=== PATIENT | female | born 1935 | race Caucasian/White ===

== ENCOUNTER 2018-04-15 17:25 | Observation (INO) ==
[2018-04-15] MEDS ORDERED: ZOFRAN IV ONE (17:53)
[2018-04-15] MEDS ORDERED: NS 1,000 ML IV ONE (17:58)
--- NOTE | 2018-04-15 18:04 | PROVIDER DOCUMENTATION ---
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) Allergies/Adverse Reactions: Patient Allergies Allergy/AdvReac Type Severity Reaction Status Date / Time codeine Allergy Unknown Unknown Verified 04/15/18 17:37 Sulfa (Sulfonamide Allergy Unknown Unknown Verified 04/15/18 17:37 Antibiotics) Home Medications: Home Medication List Medication Instructions Recorded Confirmed Last Taken Type Ascorbic Acid [Vitamin C] 500 mg PO DAILY 04/15/18 04/15/18 04/14/18 06:00 History Divalproex [Depakote Sprinkle] 375 mg PO BID 04/15/18 04/15/18 04/13/18 09:00 History Duloxetine [Cymbalta] 30 mg PO QHS 04/15/18 04/15/18 04/13/18 21:00 History Ferrous Sulfate 220 mg PO DAILY 04/15/18 04/15/18 04/14/18 06:00 History Guaifenesin 30 ml PO BID PRN 04/15/18 04/15/18 Unknown History Ranitidine HCl [Zantac] 150 mg PO DAILY 04/15/18 04/15/18 04/13/18 09:00 History - History of Present Illness-ABD Nature of Presenting Problems: 82yof present to ER via EMS with c/o n/v several times onset this afternoon. Caregiver poor historian, pt has hx of dementia. Pt c/o abd pain. Denies fever. Coffee ground emesis noted in basin in room. Abdominal Pain Onset Location: reports: generalized abdomen Pain Radiation: reports: no radiation Quality of Pain: reports: aching Onset/Duration: reports: this afternoon Timing: reports: still present Associated Symptoms: reports: nausea, vomiting. denies: fever/chills, genitourinary problems Last BM: unsure Rectal Pain: reports: none Emesis Description: reports: coffee grounds Bruising or Bleeding Gums?: No Review of Systems - Adult - REVIEW OF SYSTEMS - ADULT Constitutional: reports: no symptoms reported. denies: chills, fever Eyes: reports: no symptoms reported Ears, Nose, Mouth & Throat: reports: no symptoms reported Cardiovascular: reports: no symptoms reported. denies: chest pain Respiratory: reports: no symptoms reported. denies: shortness of breath Gastrointestinal: reports: see HPI, abdominal pain, nausea, vomiting. denies: rectal bleeding Genitourinary: reports: no symptoms reported. denies: dysuria, flank pain, frequent UTI's, hematuria Musculoskeletal: reports: no symptoms reported Integumentary: reports: no symptoms reported Neurological: reports: no symptoms reported Psychiatric: reports: no symptoms reported Endocrine: reports: no symptoms reported Hematologic/Lymphatic: reports: no symptoms reported Allergic/Immunologic: reports: no symptoms reported All Other Systems: Reviewed and Negative Past History - Adult - PAST MEDICAL HISTORY-ADULT Review of Records: reports: Old Records Reviewed, Nursing Assessment Review, Medications Reviewed Physical Exam-General - PHYSICAL EXAM-ADULT Initial Vital Signs Reviewed: Yes - CONSTITUTIONAL General Appearance: alert, no apparent distress - EYES Eyes: pink conjunctivae - HEAD, EARS, NOSE, MOUTH & THROAT HENMT: moist mucous membranes, normal ENT inspection - NECK Neck: full range of motion, supple, normal inspection - RESPIRATORY Respiratory: lungs clear, normal breath sounds - CARDIOVASCULAR Cardiovascular: normal peripheral pulses, regular rate, rhythm - GASTROINTESTINAL (ABDOMEN) Abdominal Exam: no organomegaly, no pulsatile mass, abnormal bowel sounds ( hypoactive), distended, tenderness (diffuse abd tenderness). negative: guarding , rigid, rebound - GENITOURINARY Female Genitalia/Pelvic Exam: deferred Rectal Exam: normal exam, normal rectal tone. negative: black stool, blood streaked stool, hemorrhoids, mass, tenderness Hemoccult Exam: heme negative stool - MUSCULOSKELETAL Back Exam: normal inspection, no CVA tenderness, no vertebral tenderness Extremity: normal range of motion, normal inspection - SKIN Integumentary: normal color, normal turgor, warm/dry Progress - PLAN OF CARE/RESULTS Progress/Plan/Lab Results: Vital Signs - 8 hr 04/15/18 17:25 Temperature 97.5 F L Pulse Rate 81 Respiratory Rate 18 Blood Pressure 159/88 O2 Sat by Pulse Oximetry 95 Orders Category Date Time Status Straight Catheterization ORDERED Care 04/15/18 17:[address] ABDOMEN/PELVIS W/O CONTRAST [CT] Stat Exams 04/15/18 17:58 Ordered CBC WITH DIFF [HEME] Stat Lab 04/15/18 17:52 Uncollected COMPREHENSIVE METABOLIC PANEL [CHEM] Stat Lab 04/15/18 17:52 Uncollected LIPASE [CHEM] Stat Lab 04/15/18 17:58 Uncollected ua [URINALYSIS PL W/POSS RFLX CULT] [URINALYSIS] Stat Lab 04/15/18 17:52 Uncollected 0.9% Sodium Chloride Inj [Ns] 1,000 ml Med 04/15/18 17:58 Active IV 999 mls/hr Ondansetron [Zofran] Med 04/15/18 17:53 Discontinued 4 mg IV NOW ONE Result Diagrams: 04/15/18 18:28 04/15/18 18:28 - REASSESSMENT Reassessment #1 Time Reassessed: 19:45 (Pt resting in bed, pt confused belief this to be chronic. Caregiver made aware of results. Called [facility], unable to verify much information due to the pt only came to them at 1330 this afternoon. Caregiver states pt started vomiting and they sent her here. No vomiting since first arrival to ER ) Reassessment #2 Time Reassessed: 20:24 (Attempted disimpaction. Some soft stool removed from rectal fault. Will place additional orders) - CT/MRI 1 CT Study: Abdomen Impression: Abnormal (There are no previous studies available for comparison. There is a large hiatal hernia. There is some atelectasis or fibrosis in both lower lobes. There is apparent bilateral adrenal hyperplasia. There are granulomata in the spleen. There is fullness of both renal pelves. There is a tiny stone in the left posterior mid collecting system. There is no evidence of small bowel dilatation. There is gas and stool in the colon without evidence of significant distention. The appendix is normal in appearance. There is a massive mixed solid cystic mass measuring in excess of 15 cm extending into the abdomen from the pelvis. This abuts the urinary bladder. There has apparently been hysterectomy. This may arise from the right ovary. There is no evidence of free fluid. There is a large amount of stool present in the rectum. There is no evidence of abdominal aortic aneurysm or significant adenopathy. The regional skeleton appears to be intact. IMPRESSION: 1. Abdominal pelvic mass, suspicious for cystadenocarcinoma of the ovary. 2. Constipation with fecal impaction. 3. Hiatal hernia. Electronically signed by Red Mujica 2018 7:05 PM) - CONSULTS/PCP/HOSPITALIST Notification #1 *Consult/PCP/Hospitalist*: Dr Meza Time Discussed: 20:00 (concerning mass) Reason/Comments: admit to hospitalist with consult, requests order for CA125 #2 Consult: Hospitalist, Dr Patterson Time Discussed: 20:06 Consult Disposition: Admit Departure - Departure Date of Disposition Decision: 04/15/18 Time of Disposition Decision: 20:07 DIAGNOSIS: Pelvic mass Constipation Qualifiers: Constipation type: unspecified constipation type Qualified Code(s): K59.00 - Constipation, unspecified Disposition: ADMITTED INPATIENT Certified Medical Emergency: Emergent Condition: Fair Referrals and Follow-Ups: None,PCP [Primary Care Provider] - - Critical Care Note This patient required my direct & personal management of CC.: No Attestation - Physician/ MODE Attestation Patient care was provided by Advanced Practice Provider:: Yes Advanced Practice Provider:: Robbin Pisano Advanced Practice Provider documentation review:: The Mid-level provider documentation, treatment plan and medical decision making was reviewed by the physician who agrees with all treatment and medical decision making by the P. The physician spent face to face time with patient:: No Advanced Practice Provider documentation review:: Supervising physician onsite and consulted in the evaluation and care of this patient. The physician did not have a face to face encounter with the patient.
[2018-04-15 18:54] LABS: BASO# 0.02 X1000 (0.0-0.2); BASO% 0.3 % (0.0-0.8); EOS% 1.4 % (0.0-10.0); HEMATOCRIT 40.7 % (37.0-47.0); HEMOGLOBIN 12.7 g/dL (12.0-16.0); IMM GRAN# 0.03 X1000 (0.0-0.04); IMM GRAN% 0.4 % (0.0-0.5); LYMPH# 1.33 X1000 (1.2-3.4); LYMPH% 18.9 % (20.5-51.1); MCH 27.7 PG (27-31); MCHC 31.2 g/dL (33-37); MCV 88.7 FL (81-99); MONO% 7.1 % (1.7-9.3); MPV 10.1 FL (7.4-10.4); NEUT# 5.07 X1000 (1.4-6.5); NEUT% 71.9 % (42.2-75.2); PLT 358 X1000 (130-400); RBC 4.59 XMIL (4.2-5.4); RDW 13.5 % (11.5-14.5); WBC 7.05 X1000 (4.8-10.8)
--- NOTE | 2018-04-15 19:07 | Diag Imaging Result Doc PS360 ---
EXAM: CT ABDOMEN/PELVIS W/O CONTRAST 04/15/2018 HISTORY: nv, r/o SBO TECHNIQUE: This exam was performed using automated exposure control, adjustment of mA or kV according to patient size, and/or use of iterative reconstruction technique. COMMENT: There are no previous studies available for comparison. There is a large hiatal hernia. There is some atelectasis or fibrosis in both lower lobes. There is apparent bilateral adrenal hyperplasia. There are granulomata in the spleen. There is fullness of both renal pelves. There is a tiny stone in the left posterior mid collecting system. There is no evidence of small bowel dilatation. There is gas and stool in the colon without evidence of significant distention. The appendix is normal in appearance. There is a massive mixed solid cystic mass measuring in excess of 15 cm extending into the abdomen from the pelvis. This abuts the urinary bladder. There has apparently been hysterectomy. This may arise from the right ovary. There is no evidence of free fluid. There is a large amount of stool present in the rectum. There is no evidence of abdominal aortic aneurysm or significant adenopathy. The regional skeleton appears to be intact. IMPRESSION: 1. Abdominal pelvic mass, suspicious for cystadenocarcinoma of the ovary. 2. Constipation with fecal impaction. 3. Hiatal hernia. Electronically signed by Red Mujica 04/15/2018 7:05 PM
[2018-04-15 19:18] LABS: BILIRUBIN URINE NEGATIVE (NEGATIVE); BLOOD URINE TRACE (NEGATIVE); CLARITY CLEAR (CLEAR); COLOR YELLOW; GLUCOSE URINE NEGATIVE (NEGATIVE); KETONE URINE 2+(Moderate) mg/dL (NEGATIVE); LEUKOCYTES URINE NEGATIVE (NEGATIVE); NITRITE URINE NEGATIVE (NEGATIVE); PH URINE 6.5; PROTEIN URINE TRACE mg/dL (NEGATIVE); SP GRAVITY URINE 1.015; UROBILINOGEN URINE NORMAL
[2018-04-15 19:19] LABS: AGAP 13; ALBUMIN 3.6 g/dL (3.5-5.0); ALKALINE PHOSPHATASE 189 U/L (32-104); BUN 33 mg/dL (8-22); CALCIUM 9.9 mg/dL (8.8-10.2); CHLORIDE 100 mmol/L (98-107); COSMO 292; CREATININE 0.9 mg/dL (0.5-0.9); ESTIMATED GFR 60; GLUCOSE 161 mg/dL (70-104); GOT 7 U/L (10-30); GPT < 5 U/L (10-36); LIPASE 21 U/L (13-60); POTASSIUM 4.1 mmol/L (3.5-5.1); SODIUM 141 mmol/L (136-145); TCO2 28 mmol/L (25-35); TOTAL PROTEIN 7.8 g/dL (6.3-8.3)
[2018-04-15 19:25] LABS: URINE BACTERIA 1+ /HFP; URINE EPITHELIAL CELLS <10 /HPF (<10); URINE RBC <10 /HPF (<10)
[2018-04-15 19:26] LABS: URINE CAST NONE SEEN /LPF; URINE CRYSTAL NONE SEEN /HPF; URINE SOURCE CLEAN CATCH; URINE WBC <10 /HPF (<10); URINE YEAST NONE SEEN /HPF
[2018-04-15] MEDS ORDERED: PERICOLACE PO ONE (20:28)
[2018-04-15 20:44] LABS: OCCULT BLOOD 1 NEGATIVE (NEGATIVE)
[2018-04-15] MEDS ORDERED: ATIVAN IM ONE (21:27)
[2018-04-15] MEDS ORDERED: ATIVAN IV ONE (21:30)
[2018-04-15] MEDS ORDERED: ATIVAN ONE (21:31)
[2018-04-15] MEDS ORDERED: ZOFRAN IV PRN (22:14)
[2018-04-15] MEDS: ZOSYN 3.375 GM in NS 50 ML IV SCH (22:52)
[2018-04-16] MEDS: HALDOL IV PRN (00:35)
--- NOTE | 2018-04-16 02:04 | HISTORY AND PHYSICAL ---
CHIEF COMPLAINT: Nausea, vomiting. HISTORY OF PRESENT ILLNESS: Patient is an 82-year-old female who presented to the ER via EMS with the family noting that she had some nausea and vomiting several times this afternoon. She appeared to have some coffee-grounds emesis earlier, but has had no further emesis in the last several hours in the ER. She is an extremely poor historian. She does have dementia and they note that she has been having abdominal pain. REVIEW OF SYSTEMS: Essentially unobtainable due to her confusion, disorientation. There is no family present currently. PAST MEDICAL HISTORY: Dementia. ALLERGIES: Codeine and sulfa. MEDICATIONS: Vitamin C, Depakote, Cymbalta and Zantac. FAMILY HISTORY: Noncontributory. SOCIAL HISTORY: Patient lives at home. Her sister has been her primary caregiver but as of late notes that she has been too confused and has not been able to care for Ms. Limon PHYSICAL EXAMINATION: VITAL SIGNS: Temperature 97.5, pulse 81, respiratory 18, BP 159/88, sat 95% on room air. GENERAL: Patient is confused, disoriented, does not answer questions nor follow commands. She is in no respiratory distress. HEENT: Normocephalic. NECK: Supple. CARDIOVASCULAR: Regular rate. No murmurs. CHEST: Clear, nonlabored. ABDOMEN: Soft, nondistended. No pulsatile mass. Does have some diffuse abdominal tenderness. EXTREMITIES: Moves all extremities. ASSESSMENT: 1. 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 2. Constipation with fecal impaction. 3. Hiatal hernia. 4. Dementia. PLAN: We will admit the patient hospital, consult INFORMATION CLERK, treat symptomatically and we will follow. cc: Lopez Larry MD
[2018-04-16 03:22] LABS: BILIRUBIN URINE NEGATIVE (NEGATIVE); BLOOD URINE TRACE (NEGATIVE); CLARITY CLEAR (CLEAR); COLOR YELLOW; GLUCOSE URINE NEGATIVE (NEGATIVE); KETONE URINE 1+(Small) mg/dL (NEGATIVE); LEUKOCYTES URINE NEGATIVE (NEGATIVE); NITRITE URINE NEGATIVE (NEGATIVE); PROTEIN URINE 1+(30 mg/dL) mg/dL (NEGATIVE); SP GRAVITY URINE 1.015; UROBILINOGEN URINE NORMAL
[2018-04-16 03:32] LABS: URINE BACTERIA 3+ /HFP; URINE EPITHELIAL CELLS <10 /HPF (<10); URINE RBC <10 /HPF (<10); URINE SOURCE CATH; URINE WBC <10 /HPF (<10)
--- NOTE | 2018-04-16 04:23 | CONSULTATION ---
DATE OF CONSULTATION: 04/15/2018 CHIEF COMPLAINT: Nausea and vomiting, abdominal pains. HISTORY OF PRESENT ILLNESS: The patient is an 82-year-old female who is a assisted patient with a reported history of dementia. She was admitted over at [facility] for combative behavior but just today had several episodes of emesis that was coffee-grounds in nature and also having some abdominal pains per staff. Lukas was sent to the [place] ER for further evaluation where a CT scan was performed revealing a large hiatal hernia, atelectasis or fibrosis of both lower lobes of the lungs, bilateral adrenal hyperplasia, granulomata in the spleen noted, fullness of bilateral renal pelves with tiny stone in the left collecting system noted. There was no evidence of small bowel dilatation. Gas and stool were noted in colon without significant distention and the appendix was normal in appearance. It was read as having a massive mixed solid cystic heterogeneous mass in excess of approximately greater than or equal to 15 cm, extending into the abdomen from the pelvis, that abutted the urinary bladder but was separate from it. She has had a hysterectomy and the concern on CT was that it may arise from the right ovary. There was no free fluid present. No lymphadenopathy present on CT and a large amount of stool was noted in the rectum. I did call Dr. Mujica to discuss the CT findings and specifically asked if she had a gallbladder due to the fact of a large gridiron incision on her abdomen. Dr. Mujica reports that he did not see a gallbladder. I also asked regarding if she had both of her ovaries, as she has a large vertical lower abdominal incision, most likely from her hysterectomy. Usually with vertical incisions, both ovaries are likely removed, depending on how long ago she had her hysterectomy. Dr. Mujica thinks he sees small areas that are likely bilateral ovaries present but he cannot tell if the mass is arising from the ovary itself or not. I discussed other possibilities with Dr. Mujica including Meckel's diverticulum or any other bowel origin. He states that "usually not that large". In attempting to obtain further history from the patient, the patient is somewhat combative. Does not speak in clear and coherent sentences and is not able to directly answer questions with any reliability. I did ask her when her last bowel movement was and she stated, "I do not know". I asked her when she had her hysterectomy and she reports "sometime ago". When trying to obtain any other further medical information, the patient is somewhat angry and not answering questions clearly. She is upset and keeps repetitively saying a phrase that is not discernible. No further information is able to be obtained. Supposedly, a caregiver was in earlier, however, per ER staff, not with a lot of extra information regarding patient's medical history or problems. PAST MED HX: Dementia otherwise un-obtainable. Med list consistent. MEDICATIONS: Tylenol, Maalox, Depakote, Cymbalta, Robitussin, milk of magnesia , Blistex, Seroquel, Zantac, and Senokot. ALLERGIES: Reported from chart history, codeine and sulfa. FAMILY HX: unobtainable SURGICAL HX: gridiron incision - cholecystectomy (on CT) . Vertical abdominal incision - hysterectomy.(on CT) VITAL SIGNS: Temperature 97.9 degrees, pulse 81, respirations 18, blood pressure 112/49, 98% on room air. Patient is 5 feet 5 inches tall and 110 pounds. PHYSICAL EXAMINATION: General. The patient is alert but she is not oriented to person, place, time. Confused and somewhat combative verbally as well as physically with attempted exam. Neck: Supple. No thyromegaly. Cardiovascular: Regular rate and rhythm. Lungs: Clear to auscultation bilaterally. Abdomen: Bowel sounds are present but hypoactive. There is no rebound or guarding. There is no rigidity. She had some minimal distention that is tympanic in nature. She is not tender on my exam at all. There is no heel tap present/peritoneal signs present.. There is overall fullness to the right lower quadrant to midline but I cannot palpate a definable mass. It is just more of a firmness present. A vertical skin incision scar was noted , umbilicus to pubic symphysis. She also has a large angled gridiron incision, right upper quadrant. Back: There is no CVA tenderness noted. Pelvic: I discussed with patient performing a pelvic exam. The patient would not give direct verbal consent when discussing the performance of the exam. With attempts to even look at genitalia area, patient kicked this practitioner. Therefore, I did not perform any pelvic exam on this patient. Rectal: The ER staff had already collected an occult stool specimen but was not able to remove any stool itself. Per report, full of stool in the rectum. LAB WORK: Lab work reviewed from this evening. White count of 7.05, hemoglobin 12.7, hematocrit 40.7, platelets 358,000. Calcium level 9.9. AST of 7, ALT of less than 5, lipase of 21. Sodium of 141, potassium of 4.1, chloride of 100, CO2 of 28, BUN of 33, creatinine 0.9 , and blood sugar of 161. UA, pH of 6.5, specific gravity 1.015, trace protein was present, 2+ ketones, negative for nitrites, negative for WBC, 1+ bacteria was noted, less than 10 epithelial cells, and no glucose was noted in the UA. ASSESSMENT: 1. An 82-year-old female with obstetric history unknown as patient and is not cooperative, status post hysterectomy per CT scan, with nausea, vomiting of coffee-grounds emesis , as well as stool impaction. 2. Secondary diagnosis of pelvic mass, approximately 15 cm, questionable off of right ovary. PLAN: 1. The patient is overall stable. No surgical abdomen. No rebound or guarding. No rigidity. Vital signs are stable. White count is normal. The patient is in no physical distress. She is not well oriented, and has dementia and is combative. I feel that most of her emesis from today and her symptoms that just started today are most likely due to stool impaction and possibly gut motility issues. She will be admitted to the medicine service during this workup. Enema was ordered in the emergency room. We will leave the remainder of care orders up to medicine service for admission. 2. Mass seen on CT. Considering the patient had no problems until today and on CT no free fluid and no adenopathy was noted; the likelihood of this mass being the origin of her current problems is minimal. Further workup with CA-125 and pelvic US in AM ordered , Considering patient's stable vitals, stable lab work status, and physical exam other than feeling fullness in the lower right quadrant and mid pelvis no further intervention necessary at this time. Considering age, dementia, and status, if benign in nature, and nausea and vomiting relieved with disimpaction, futility of gathering further information with a surgical procedure on this patient would be not in the patient's best interest. If CA-125 is elevated or appears to be off the ovary, would need to talk with healthcare POA/ family members about whether or not further evaluation or treatment desired or warranted. cc: Concepcion Meza MD [facility] MEDICAL CENTERAlan
[2018-04-16] MEDS: ZOSYN 3.375 GM in NS 50 ML IV SCH ×4 (04:51→23:05)
--- NOTE | 2018-04-16 08:39 | Diag Imaging Result Doc PS360 ---
EXAM: US PELVIC NON-OB (LIMITED) HISTORY: pelvic pain TECHNIQUE: Transabdominal pelvic ultrasound COMPARISON: Recent CT FINDINGS: There is a large complex solid and cystic mass in the pelvis measuring 17.5 x 15.4 x 9.5 cm. The uterus is not identified. By history the uterus has been removed. No free fluid in the pelvis. IMPRESSION: Large complex solid and cystic pelvis mass likely arising from one of the ovaries. Electronically signed by Rocael Byers 04/16/2018 8:37 AM
[2018-04-16 09:05] LABS: HEMATOCRIT 31.2 % (37.0-47.0); HEMOGLOBIN 9.5 g/dL (12.0-16.0); MCH 27.4 PG (27-31); MCHC 30.4 g/dL (33-37); MCV 89.9 FL (81-99); MPV 9.8 FL (7.4-10.4); RBC 3.47 XMIL (4.2-5.4); RDW 13.6 % (11.5-14.5); WBC 9.22 X1000 (4.8-10.8)
[2018-04-16 09:25] LABS: AGAP 9; ALBUMIN 2.7 g/dL (3.5-5.0); ALKALINE PHOSPHATASE 155 U/L (32-104); BUN 33 mg/dL (8-22); CALCIUM 8.9 mg/dL (8.8-10.2); CHLORIDE 107 mmol/L (98-107); COSMO 294; ESTIMATED GFR 53; GLUCOSE 122 mg/dL (70-104); GOT 7 U/L (10-30); GPT < 5 U/L (10-36); POTASSIUM 4.2 mmol/L (3.5-5.1); SODIUM 143 mmol/L (136-145); TCO2 27 mmol/L (25-35); TOTAL PROTEIN 5.9 g/dL (6.3-8.3)
[2018-04-16] MEDS ORDERED: FLEET ENEMA PR ONE (11:02)
[2018-04-16] MEDS ORDERED: FLEET MINERAL OIL ENEMA PR ONE (11:02)
[2018-04-16] MEDS ORDERED: DILAUDID IV ONE (16:10)
[2018-04-16 17:28] LABS: HEMATOCRIT 36.9 % (37.0-47.0); MCHC 29.8 g/dL (33-37); MCV 90.4 FL (81-99); MPV 10.3 FL (7.4-10.4); RBC 4.08 XMIL (4.2-5.4); RDW 13.7 % (11.5-14.5); WBC 9.73 X1000 (4.8-10.8)
[2018-04-16 18:15] LABS: AGAP 11; ALBUMIN 3.1 g/dL (3.5-5.0); ALKALINE PHOSPHATASE 174 U/L (32-104); BUN 32 mg/dL (8-22); CALCIUM 9.3 mg/dL (8.8-10.2); CHLORIDE 105 mmol/L (98-107); COSMO 292; CREATININE 1.1 mg/dL (0.5-0.9); ESTIMATED GFR 48; GLUCOSE 108 mg/dL (70-104); GOT 15 U/L (10-30); GPT < 5 U/L (10-36); POTASSIUM 4.9 mmol/L (3.5-5.1); SODIUM 143 mmol/L (136-145); TCO2 27 mmol/L (25-35); TOTAL PROTEIN 6.8 g/dL (6.3-8.3)
[2018-04-16] MEDS: NS 1,000 ML IV SCH (21:07)
[2018-04-17] MEDS: ATIVAN IV PRN ×3 (00:43→17:23)
--- NOTE | 2018-04-17 01:12 | PROGRESS NOTE ---
DATE: 04/16/2018 SUBJECTIVE: Patient is confused, disoriented. PHYSICAL EXAMINATION: Vital Signs: Reviewed. T-max 100 degrees, T current 97.7 degrees, pulse 90, respiratory 20, BP 144/62. General: Patient is confused, disoriented. Does not answer questions nor follow commands. HEENT: Normocephalic. Neck: Supple. CARDIOVASCULAR: Regular rate. Chest: Clear. Abdomen: Soft. Extremities: Moves all extremities. ASSESSMENT: 1. Pelvic mass approximately 15 cm. 2. Constipation. 3. Hiatal hernia. 4. Dementia. PLAN: We will continue patient in the hospital. She is improving after she was given an enema and has had a bowel movement. We will attempt to find family to discuss with them options. cc: Lopez Larry MD
[2018-04-17] MEDS: ZOSYN 3.375 GM in NS 50 ML IV SCH ×4 (04:00→21:34)
[2018-04-17 06:32] LABS: HEMATOCRIT 31.8 % (37.0-47.0); HEMOGLOBIN 9.4 g/dL (12.0-16.0); MCHC 29.6 g/dL (33-37); MCV 91.4 FL (81-99); RBC 3.48 XMIL (4.2-5.4); RDW 13.6 % (11.5-14.5); WBC 6.69 X1000 (4.8-10.8)
[2018-04-17 06:55] LABS: AGAP 12; ALBUMIN 2.7 g/dL (3.5-5.0); ALKALINE PHOSPHATASE 149 U/L (32-104); BUN 27 mg/dL (8-22); CALCIUM 8.8 mg/dL (8.8-10.2); CHLORIDE 112 mmol/L (98-107); COSMO 299; ESTIMATED GFR 53; GLUCOSE 86 mg/dL (70-104); GOT 8 U/L (10-30); GPT < 5 U/L (10-36); POTASSIUM 3.7 mmol/L (3.5-5.1); SODIUM 148 mmol/L (136-145); TCO2 24 mmol/L (25-35); TOTAL PROTEIN 5.9 g/dL (6.3-8.3)
[2018-04-17] MEDS: NS 1,000 ML IV SCH (12:48)
[2018-04-17] MEDS: BENADRYL IV PRN (21:35)
--- NOTE | 2018-04-18 00:44 | PROGRESS NOTE ---
DATE: 04/17/2018 SUBJECTIVE: Patient is still confused, disoriented. Does not answer questions nor follow commands. PHYSICAL EXAMINATION: Vital Signs: Temperature 97.7 degrees, pulse 63, respiratory 18, BP 136/60. General: Patient is in no respiratory distress. She is confused, disoriented. Does not answer questions nor follow commands. HEENT: Normocephalic. Neck: Supple. CARDIOVASCULAR: Regular rate. Chest: Clear, nonlabored. Abdomen: Soft, nondistended. ASSESSMENT: 1. Pelvic mass, 15 cm of undetermined origin. 2. Constipation. 3. Hiatal hernia. 4. Dementia. PLAN: We will continue Zosyn. We will continue to follow. We will attempt to find family. cc: Lopez Larry MD
[2018-04-18] MEDS: NS 1,000 ML IV SCH ×2 (01:07→20:17)
[2018-04-18] MEDS: ATIVAN IV PRN ×2 (01:08→20:24)
[2018-04-18] MEDS: ZOSYN 3.375 GM in NS 50 ML IV SCH ×4 (03:28→21:29)
[2018-04-18] MEDS: OFIRMEV 1000 MG/ISOTONIC SOLN 1,000 MG/100 ML BOTTLE IV PRN ×3 (04:41→20:02)
[2018-04-18] MEDS ORDERED: ROBITUSSIN PO PRN (09:11)
[2018-04-18] MEDS: BENADRYL IV PRN ×2 (11:00→20:24)
[2018-04-18] MEDS: HALDOL IV PRN ×2 (11:00→20:17)
[2018-04-18] MEDS: DEPAKOTE SPRINKLE PO SCH (11:17)
[2018-04-18] MEDS: SEROQUEL PO SCH (11:18)
[2018-04-18] MEDS: ZANTAC PO SCH (11:18)
[2018-04-18] MEDS: VITAMIN C PO SCH (11:18)
--- NOTE | 2018-04-18 22:17 | PROGRESS NOTE ---
DATE: 04/18/2018 SUBJECTIVE: The patient is confused, disoriented. Does not answer questions. OBJECTIVE: Vital Signs: Reviewed. Temperature 97.9 degrees, pulse 113, respiratory 20, BP 176/81. General: The patient is lying in bed. She is confused, disoriented. Does not answer questions. Does not follow commands. She currently is vocalizing loudly. HEENT: Normocephalic. Neck: Supple. CARDIOVASCULAR: Regular rate. Chest: Clear, nonlabored. Abdomen: Soft, nondistended. ASSESSMENT: 1. Dementia. 2. Hiatal hernia. 3. Constipation, appears improved. 4. Pelvic mass of undetermined origin. PLAN: We will continue the patient in the hospital. We will attempt to contact the guardian to decide on what plan to do for the pelvic mass. Currently, she is stable. cc: Lopez Larry MD
[2018-04-19] MEDS: SEROQUEL PO SCH ×5 (00:14→22:50)
[2018-04-19] MEDS: DEPAKOTE SPRINKLE PO SCH ×3 (00:15→22:49)
[2018-04-19] MEDS: CYMBALTA PO SCH ×2 (00:16→22:49)
[2018-04-19] MEDS: HALDOL IV PRN ×3 (02:29→22:47)
[2018-04-19] MEDS: OFIRMEV 1000 MG/ISOTONIC SOLN 1,000 MG/100 ML BOTTLE IV PRN ×3 (02:29→18:02)
[2018-04-19] MEDS: BENADRYL IV PRN ×2 (02:55→13:35)
[2018-04-19] MEDS: ZOSYN 3.375 GM in NS 50 ML IV SCH (03:56)
[2018-04-19] MEDS: NS 1,000 ML IV SCH ×3 (06:33→20:56)
--- NOTE | 2018-04-19 08:10 | PROGRESS NOTE ---
DATE: 04/19/2018 OBJECTIVE: Previously dictated note, job #[id number], is not on the chart yet. Pelvic ultrasound revealed a 17.5 x 15.4 x 9.5 cm pelvic mass with solid and cystic components, likely arising from an ovary. CA-125 was 76. ASSESSMENT: Large pelvic mass in a patient with dementia. I would anticipate that CA-125 would be much higher in the face of an ovarian malignancy. However, ovarian cancer, as well as a benign tumors such as mucinous cystadenoma or low malignant potential tumors are in the differential diagnosis. PLAN: Depending on how the family wants to proceed, the next step from a gynecological perspective would be a gynecologic oncology consultation. This could be done as an inpatient transfer to a tertiary facility with senior staff psychologist/onc availability or could be done as an outpatient if the patient is discharged from the hospital. cc: Jorge Huitron MD MTDD
[2018-04-19] MEDS: VITAMIN C PO SCH (09:37)
[2018-04-19] MEDS: ZANTAC PO SCH (09:37)
--- NOTE | 2018-04-19 16:56 | PROGRESS NOTE ---
DATE: 04/19/2018 SUBJECTIVE: Patient is awake. She is lying in bed. She is constantly vocalizing nonsensical words. OBJECTIVE: Vital Signs: Reviewed. Temperature 97.5, pulse 76, respiratory 18, BP 180/79. General: Patient is in no respiratory distress. She is calm, lying in the bed. HEENT: Normocephalic. Neck: Supple. Cardiovascular: Regular rate. Chest: Clear, nonlabored. Abdomen: Soft, appears nontender. Extremities: No edema. ASSESSMENT: 1. Pelvic mass which is likely ovarian cancer given ultrasound findings as well as CA-125 being elevated. 2. Constipation with fecal impaction, resolved. Patient's pain has resolved with it. 3. Hiatal hernia. 4. Dementia. 5. Hypertension. PLAN: We will continue patient in the hospital. We will need to obtain information from her legal guardian as to what direction they would prefer. Certainly, doing surgery on Ms. Limon might improve her ovarian mass. This certainly will not improve her mental status. We will continue to follow per their decision. cc: Lopez Larry MD
[2018-04-19] MEDS: ATIVAN IV PRN (20:57)
[2018-04-20] MEDS: BENADRYL IV PRN (00:51)
[2018-04-20] MEDS: OFIRMEV 1000 MG/ISOTONIC SOLN 1,000 MG/100 ML BOTTLE IV PRN (04:42)
[2018-04-20] MEDS: NS 1,000 ML IV SCH ×2 (06:35→13:50)
[2018-04-20 06:50] LABS: HEMATOCRIT 32.3 % (37.0-47.0); HEMOGLOBIN 9.9 g/dL (12.0-16.0); MCHC 30.7 g/dL (33-37); MCV 88.3 FL (81-99); MPV 9.4 FL (7.4-10.4); RBC 3.66 XMIL (4.2-5.4); RDW 13.2 % (11.5-14.5); WBC 9.08 X1000 (4.8-10.8)
[2018-04-20 07:09] LABS: AGAP 18; ALBUMIN 2.7 g/dL (3.5-5.0); ALKALINE PHOSPHATASE 123 U/L (32-104); BUN 12 mg/dL (8-22); CALCIUM 8.5 mg/dL (8.8-10.2); CHLORIDE 106 mmol/L (98-107); COSMO 279; CREATININE 0.7 mg/dL (0.5-0.9); ESTIMATED GFR > 60; GLUCOSE 67 mg/dL (70-104); GOT 8 U/L (10-30); GPT < 5 U/L (10-36); MAGNESIUM 1.3 mg/dL (1.5-2.7); POTASSIUM 2.9 mmol/L (3.5-5.1); SODIUM 141 mmol/L (136-145); TCO2 17 mmol/L (25-35); TOTAL PROTEIN 6.1 g/dL (6.3-8.3)
[2018-04-20] MEDS: DEPAKOTE SPRINKLE PO SCH ×2 (10:03→21:03)
[2018-04-20] MEDS: VITAMIN C PO SCH (10:03)
[2018-04-20] MEDS: SEROQUEL PO SCH ×3 (10:04→21:03)
[2018-04-20] MEDS: ZANTAC PO SCH (10:04)
[2018-04-20] MEDS ORDERED: KLOR-CON PO ONE ×2 (13:33→14:28)
--- NOTE | 2018-04-20 14:52 | PROGRESS NOTE ---
DATE: 04/20/2018 SUBJECTIVE: The patient has no focal complaints. OBJECTIVE: Vital Signs: Blood pressure is 180/78, heart rate of 82, respiratory rate 18, temperature 97.7, and 99% on room air. Cardiovascular: Regular rate and rhythm. Pulmonary: Bilateral breath sounds. Clear to auscultation. Gastrointestinal: Soft, nontender, nondistended. Bowel sounds are positive. LABORATORY DATA: Hemoglobin and hematocrit of 9 and 32, white count 9, platelets 292,000. Potassium 2.9, magnesium of 1.3. Other than that, it was pretty stable. ASSESSMENT AND PLAN: 1. Pelvic mass with concern over possible malignancy. We will discuss with the [id number] about further intervention, biopsy or otherwise, and follow. 2. Constipation, which has resolved. We need to make sure she is on a bowel regimen. 3. Dementia with significant issues. We will continue treatment and follow. 4. Disposition. The patient is overall stable. We will continue to follow closely. cc: Kayden Hinton MD
[2018-04-20] MEDS ORDERED: MAGNESIUM SULFATE 2 GM/S.W.I. 2 GM/50 ML IVPB IV ONE (15:00)
--- NOTE | 2018-04-20 16:09 | Diag Imaging Result Doc PS360 ---
EXAM: CT HEAD W/O CONTRAST INDICATION: encephalopathy TECHNIQUE: This exam was performed using automated exposure control, adjustment of mA or kV according to patient size, and/or use of iterative reconstruction technique. COMPARISON: None. FINDINGS: There is patchy low attenuation in the periventricular and subcortical white matter suggesting mild to moderate microangiopathy. There is no definite acute infarct given the limited sensitivity of CT versus MRI. There is no discrete intracranial mass, mass effect, or intracranial hemorrhage. The surrounding soft tissues and bony structures are essentially unremarkable. IMPRESSION: Mild to moderate chronic appearing white matter changes but no definite acute intracranial pathology. Electronically signed by Heron Tafoya 04/20/2018 4:07 PM
[2018-04-20] MEDS: CYMBALTA PO SCH (21:04)
[2018-04-21 07:00] LABS: CALCIUM 8.8 mg/dL (8.8-10.2); POTASSIUM 4.3 mmol/L (3.5-5.1)
--- NOTE | 2018-04-21 10:46 | DISCHARGE SUMMARY ---
ADMISSION DATE: 04/15/2018 DISCHARGE DATE: HISTORY: Patient is doing well. No major complaints. She is lying in bed. EXAMINATION: Vital signs are stable. Heart rate 113, blood pressure 113/43, heart rate 96, respiratory rate 18, temperature 98.3 degrees and 97% on room air. Cardiovascular: Regular rate and rhythm. Pulmonary: Bilateral breath sounds clear to auscultation. GI: Soft. Nontender and nondistended. LABORATORY: Basic today looked okay. ASSESSMENT AND PLAN: She does have a large pelvic mass with concern over malignancy, but after discussion with her power of claim attorney, they do not want to pursue any aggressive measures, biopsy or otherwise. She will be going back to her long-term care facility for hospice care. The patient is a DNR, and that should carry through her long-term care, or any readmissions based on conversation with the power of claim attorney. We will continue her regular medications and follow. This is a [id number] encounter note with Nessa Paredes. TIME SPENT: 32 minute discharge. cc: Kayden Hinton MD
--- NOTE | 2018-04-21 10:58 | DISCHARGE SUMMARY ---
ADMISSION DATE: 04/15/2018 DISCHARGE DATE: 04/21/2018 ADMISSION DIAGNOSES: 1. 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 2. Constipation with fecal impaction. 3. Hiatal hernia. 4. Dementia. DISCHARGE DIAGNOSES: 1. Pelvic mass with concern over possible malignancy. 2. Constipation, resolved. 3. Dementia. SUMMARY OF FINDINGS: This is an 82-year-old female who presented to the emergency room with nausea and vomiting, and appeared to have some coffee-grounds emesis earlier, but has had no further emesis in the last several hours while in the emergency room. The patient is an extremely poor historian, has dementia, and it was noted that she had been having abdominal pain. 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 We consulted NEEDLE PUNCH MACHINE OPERATOR, who felt that it was not a surgical abdomen at that time. They wanted to talk with the POA on whether further evaluation and treatment was desired or warranted. Her transabdominal pelvic ultrasound showed a large complex solid and cystic pelvic mass, likely arising from one of the ovaries. We did do a CT of the head as well that showed mild to moderate chronic appearing white matter changes but no definite acute intracranial pathology. The power of tax attorney spoke with the patient's brother and sister, and it was decided that they did not want any surgical intervention for this at this time, and that she would return back to [facility] long-term care, and that they would consult hospice once she arrived there for further treatment, that she would be a DNR and kept comfortable. Her constipation again has resolved, and she will be placed on a bowel regimen. It is felt that she can now safely be discharged back to [facility] for further evaluation and treatment. DISCHARGE MEDICATIONS: 1. Cymbalta 30 mg p.o. at bedtime. 2. Ferrous Sulfate 220 mg p.o. daily. 3. Divalproex 375 mg p.o. b.i.d. 4. Guaifenesin 30 mL p.o. b.i.d. p.r.n. 5. Zantac 150 mg p.o. daily. 6. Vitamin C 500 mg p.o. daily. 7. Seroquel 50 mg p.o. at bedtime and 25 mg p.o. b.i.d. 8. MiraLAX 17 g p.o. daily. 9. Lactulose 30 mL p.o. b.i.d. p.r.n. FOLLOW UP: She will have hospice consult once she arrives back to the facility. TIME SPENT: 35 minute discharge. Dictated by REYNA Farris for Kayden Hinton MD cc: REYNA Farris MD
[2018-04-21] MEDS: FERROUS SULFATE PO SCH (12:00)
[2018-04-21] MEDS: ZANTAC PO SCH (12:00)
[2018-04-21] MEDS: DEPAKOTE SPRINKLE PO SCH ×2 (12:00→21:28)
[2018-04-21] MEDS: VITAMIN C PO SCH (12:01)
[2018-04-21] MEDS: SEROQUEL PO SCH ×3 (12:01→21:29)
--- NOTE | 2018-04-21 16:20 | Diag Imaging Result Doc PS360 ---
[facility]UB ABDOMEN - 04/21/2018 INDICATION: n/v COMPARISON: None FINDINGS: There is moderate rectal stool impaction, with a stool ball measuring about 12 x 7.5 cm. Otherwise there is a normal bowel gas pattern. No definite free air. IMPRESSION: Rectal stool impaction. Electronically signed by Hector Castaneda 04/21/2018 4:19 PM
[2018-04-21] MEDS ORDERED: FLEET ENEMA PR ONE (16:39)
[2018-04-21] MEDS: LACTULOSE PO SCH (21:28)
[2018-04-21] MEDS: MIRALAX PO SCH (21:28)
[2018-04-21] MEDS: CYMBALTA PO SCH (21:28)
[2018-04-22] MEDS: SEROQUEL PO SCH ×2 (06:00→13:29)
[2018-04-22 08:09] VITALS: BP 136/59
[2018-04-22] MEDS ORDERED: CALMOSEPTINE OINTMENT TOP PRN (09:44)
[2018-04-22] MEDS: DEPAKOTE SPRINKLE PO SCH (10:14)
[2018-04-22] MEDS: FERROUS SULFATE PO SCH (10:21)
[2018-04-22] MEDS: LACTULOSE PO SCH (10:22)
[2018-04-22] MEDS: ZANTAC PO SCH (10:23)
[2018-04-22] MEDS: MIRALAX PO SCH (10:23)
[2018-04-22] MEDS: VITAMIN C PO SCH (10:23)
[2018-04-22] MEDS ORDERED: HYDROCODONE/APAP 7.5-325/15 ML PO ONE (11:23)
--- NOTE | 2018-04-23 12:12 | DISCHARGE SUMMARY ---
ADMISSION DATE: 04/15/2018 DISCHARGE DATE: 04/22/2018 ADDENDUM: Patient was kept 1 more day because she had episodes of emesis. There was concern about fecal emesis. Her plain films showed fecal impaction, so she was given several enemas and bowel medications and has cleared out. Her abdominal exam is now soft and unremarkable. We will discharge her today based on previous recommendations, but I will add some pain medicine as needed for pain medication. Continue to follow closely. cc: Kayden Hinton MD
== END 2018-04-22 16:40 ==
LOC: P.ED 17:25 → P.EDIPHOLD 17:25 → SUATTDRO 21:10 → P.MEDSURG 04-16 01:59 → UNDODISOB 04-21 14:10
PROVIDERS: ATTEND Internal Medicine
CPT/HCPCS: 36415; 51701; 70450; 74000; 74018; 74176; 76857; 80048; 80053; 81001; 82270; 83690; 83735; 84443; 85025; 85027; 86304; 86850; 86900; 86901; 86920; 87088; 96361; 96365; 96375; 99285; A9270; J0131; J1170; J1200; J1630; J2060; J2405; J2543; J3475; J7030